=== PATIENT | male | born 1960 ===

== ENCOUNTER 2017-01-26 14:14 | Emergency (ER) | payer OTHER ==
[2017-01-26 14:14] VITALS: BMI 32.6
[2017-01-26 14:24] VITALS: TEMP 97.9; O2SAT 97
[2017-01-26] MEDS ORDERED: Iohexol 240 (50 ml) PO STA (15:05)
[2017-01-26] MEDS ORDERED: Sodium Chloride 0.9% 1,000 ML IV STA (15:05)
--- NOTE | 2017-01-26 15:23 | C.PDOC ---
History Of Present Illness 56-year-old male, presents to the emergency department with complaints of abdominal pain. Patient states he is currently being treated for H. Pylori. Denies nausea/vomiting, diarrhea, fevers, chills, chest pain or shortness of breath. No other complaints at this time. Time Seen by Provider: 01/26/17 14:39 Chief Complaint (Nursing): Abdominal Pain History Per: Patient History/Exam Limitations: no limitations Past Medical History Reviewed: Historical Data, Nursing Documentation, Vital Signs Vital Signs: Last Vital Signs Temp 97.9 F 01/26/17 14:22 Pulse 64 01/26/17 18:23 Resp 20 01/26/17 18:23 BP 105/66 01/26/17 18:23 Pulse Ox 97 01/26/17 18:58 - Medical History PMH: Hypercholesterolemia, Migraine Family History: States: Unknown Family Hx - Social History Hx Alcohol Use: No Hx Substance Use: No - Immunization History Hx Tetanus Toxoid Vaccination: No Hx Influenza Vaccination: No Hx Pneumococcal Vaccination: No Review Of Systems Except As Marked, All Systems Reviewed And Found Negative. Constitutional: Negative for: Fever, Chills Respiratory: Negative for: Cough, Shortness of Breath Gastrointestinal: Positive for: Abdominal Pain. Negative for: Nausea, Vomiting , Diarrhea Genitourinary: Negative for: Dysuria, Frequency Musculoskeletal: Negative for: Back Pain Physical Exam - Physical Exam Appears: Non-toxic, No Acute Distress Skin: Warm, Dry, No Rash Eye(s): bilateral: Normal Inspection, PERRL Nose: Normal Oral Mucosa: Moist Lips: Normal Appearing Neck: Normal ROM Respiratory: No Accessory Muscle Use Extremity: Normal ROM Neurological/Psych: Oriented x3, Normal Speech ED Course And Treatment - Laboratory Results Result Diagrams: 01/26/17 15:22 01/26/17 15:22 O2 Sat by Pulse Oximetry: 97 - CT Scan/US CT ABD/PEL Other Rad Studies (CT/US): Read By Radiologist, Radiology Report Reviewed CT/US Interpretation: Accession No. : [id number]. Patient Name / ID : BROOKLYN GRACE / [id number]. Exam Date : 01/26/2017 17:25:25 ( Approved ). Study Comment : Sex / Age : M / 56Y. Creator : Omar Hirsch MD. Dictator : Omar Hirsch MD. Truss Assembler : Mold Washer : Omar Hirsch MD. Approver2 : Report Date : 01/26/2017 18:05:21. My Comment : . PROCEDURE: CT Abdomen and Pelvis with contrast. HISTORY: Lower abdominal pain. COMPARISON: 12/22/2016 abdominal ultrasound. TECHNIQUE: Contrast dose : 100 cc Omnipaque 350. Radiation dose: Total exam DLP = 77369.9 mGy-cm. This CT exam was performed using one or more of the following dose reduction techniques: Automated exposure control, adjustment of the mA and/or kV according to patient size, and/or use of iterative reconstruction technique. FINDINGS: LOWER THORAX: Dependent subsegmental atelectasis approximately symmetrical bilaterally. LIVER: Hepatic steatosis. No focal masses. No intrahepatic bile duct dilatation or perihepatic ascites. GALLBLADDER AND BILE DUCTS: Unremarkable. PANCREAS: Unremarkable. No gross lesion or ductal dilatation. SPLEEN: Unremarkable. ADRENALS: Unremarkable. No mass. KIDNEYS AND URETERS: Unremarkable. No hydronephrosis. No solid mass. VASCULATURE: Unremarkable. No aortic aneurysm. BOWEL: Constipation without fecal impaction or obstruction. Diverticulosis without an acute inflammatory component or other associated pathologic process. APPENDIX: Normal appendix. PERITONEUM: Unremarkable. No free fluid. No free air. LYMPH NODES: Unremarkable. No enlarged lymph nodes. BLADDER: Unremarkable. REPRODUCTIVE: Unremarkable. BONES: No acute fracture. OTHER FINDINGS: None. IMPRESSION: No acute findings related to/accounting for the clinical presentation Progress Note: CT Abd/Pel. CMP, Lipase. CBC. Morphine, IVF, Zofran. Urine Culture/Urinalysis. Reassess and Disposition. On re-exam patient feels better and is stable to be d/c home with PMD and GI follow up. Disposition - Disposition Disposition: HOME/ ROUTINE Disposition Time: 18:34 Condition: IMPROVED Additional Instructions: Follow up with your PMD within 1-2 days. Return to Ed if feel worse. Prescriptions: Lactulose 30 ml PO DAILY PRN #600 ml PRN Reason: Constipation Instructions: Constipation (ED) - Clinical Impression Clinical Impression: Constipation - Scribe Statement The provider has reviewed the documentation as recorded by the Amyibmaurice Soler All medical record entries made by the Amyibe were at my direction and personally dictated by me. I have reviewed the chart and agree that the record accurately reflects my personal performance of the history, physical exam, medical decision making, and the department course for this patient. I have also personally directed, reviewed, and agree with the discharge instructions and disposition.
[2017-01-26] MEDS ORDERED: Morphine 4 MG/ML VIAL ONE (15:24)
[2017-01-26 15:31] LABS: BASO # 0.1 K/uL (0.0-0.2); BASO % 0.9 % (0.0-2.0); EOS # 0.2 K/uL (0.0-0.7); EOS % 2.2 % (0.0-4.0); HEMATOCRIT 44.4 % (35.0-51.0); LYMPH # 1.9 K/uL (1.0-4.3); LYMPH % 27.2 % (20.0-40.0); MEAN CORPUSCULAR HEMOGLOBIN 30.4 pg (27.0-31.0); MEAN CORPUSCULAR HGB CONC 33.4 g/dL (33.0-37.0); MEAN PLATELET VOLUME 8.6 fL (7.2-11.7); MONO # 0.7 K/uL (0.0-0.8); MONO % 10.4 % (0.0-10.0); RED CELL DISTRIBUTION WIDTH 13.6 % (11.5-14.5)
[2017-01-26 15:34] LABS: RBC URINE < 1 /hpf (0-3); URINE BILIRUBIN NEGATIVE (NEGATIVE); URINE BLOOD NEGATIVE (NEGATIVE); URINE COLOR Yellow (YELLOW); URINE GLUCOSE (UA) NORMAL (Normal); URINE KETONE NEGATIVE (NEGATIVE); URINE LEUKOCYTE ESTERASE NEG Leu/uL (Negative); URINE PROTEIN NEGATIVE (NEGATIVE); URINE UROBILINOGEN NORMAL mg/dL (0.2-1.0); WBC URINE 1 /hpf (0-5)
[2017-01-26 15:38] LABS: CHLORIDE 102 mmol/L (98-107)
[2017-01-26 15:39] LABS: POTASSIUM 4.1 mmol/L (3.6-5.2); SODIUM 138 mmol/L (132-148)
[2017-01-26 15:41] LABS: GFR AFRICAN-AMERICAN > 60
[2017-01-26 15:42] LABS: ALB/GLOB RATIO 1.1 (1.0-2.1); ALKALINE PHOSPHATASE 89 U/L (38-126); ALT/SGPT 31 U/L (21-72); AST/SGOT 41 U/L (17-59); BILIRUBIN,TOTAL 0.5 mg/dL (0.2-1.3); BLOOD UREA NITROGEN 16 mg/dL (9-20); CALCIUM 8.6 mg/dl (8.6-10.4); CARBON DIOXIDE 23 mmol/L (22-30); GLUCOSE,RANDOM 99 mg/dL (75-110); TOTAL PROTEIN 7.1 g/dL (6.3-8.3)
[2017-01-26] MEDS ORDERED: Iohexol 350mg/ml 100 ML ONE (16:42)
--- NOTE | 2017-01-26 18:06 | CT ---
PROCEDURE: CT Abdomen and Pelvis with contrast HISTORY: Lower abdominal pain. COMPARISON: 12/22/2016 abdominal ultrasound. TECHNIQUE: Contrast dose: 100 cc Omnipaque 350 Radiation dose: Total exam DLP = 77157.9 mGy-cm. This CT exam was performed using one or more of the following dose reduction techniques: Automated exposure control, adjustment of the mA and/or kV according to patient size, and/or use of iterative reconstruction technique. FINDINGS: LOWER THORAX: Dependent subsegmental atelectasis approximately symmetrical bilaterally. LIVER: Hepatic steatosis. No focal masses. No intrahepatic bile duct dilatation or perihepatic ascites. GALLBLADDER AND BILE DUCTS: Unremarkable. PANCREAS: Unremarkable. No gross lesion or ductal dilatation. SPLEEN: Unremarkable. ADRENALS: Unremarkable. No mass. KIDNEYS AND URETERS: Unremarkable. No hydronephrosis. No solid mass. VASCULATURE: Unremarkable. No aortic aneurysm. BOWEL: Constipation without fecal impaction or obstruction. Diverticulosis without an acute inflammatory component or other associated pathologic process. APPENDIX: Normal appendix. PERITONEUM: Unremarkable. No free fluid. No free air. LYMPH NODES: Unremarkable. No enlarged lymph nodes. BLADDER: Unremarkable. REPRODUCTIVE: Unremarkable. BONES: No acute fracture. OTHER FINDINGS: None. IMPRESSION: No acute findings related to/accounting for the clinical presentation.
[2017-01-26 18:23] VITALS: BP 105/66; PULSE 64; RESP 20
== END 2017-01-26 18:41 | disposition home or self-care (01) ==
LOC: C.ER 14:14
DX: K59.00 Constipation, unspecified (principal)
CPT/HCPCS: 74177; 80053; 81001; 83690; 85025; 87086; 96374; 96375; 99284; J2270; J2405; J7040; Q9966; Q9967

== ENCOUNTER 2018-10-16 08:16 | Day surgery (SDC) | payer OTHER ==
[2018-10-16 08:45] VITALS: PULSE 71; RESP 18; TEMP 97.1; O2SAT 97
[2018-10-16] MEDS ORDERED: Propofol 10 mg/ml Inj (20 ML) ONE ×2 (09:36→09:37)
--- NOTE | 2018-10-16 09:39 | CP.SDSHP ---
Same Day Surgery H & P - History Proposed Procedure: Colonoscopy Pre-Op Diagnosis: Screening exam - Previous Medical/Surgical History Previous Surgical History: head trauma. Knee surgery - Allergies Allergies: Allergies No Known Allergies Allergy (Verified 10/16/18 08:31) - Current Medications Current Medications: reviewed - Physical Exam General Appearance: wdwn nad Vital Signs: Vital Signs 10/16/18 08:39 Temperature 97.1 F L Pulse Rate 71 Respiratory 18 Rate Blood Pressure 124/67 O2 Sat by Pulse 97 Oximetry Mental Status: Alert & Oriented x3 Neuro: WNL Heart: WNL Lungs: WNL GI: WNL - {Optional Preform as Required} Abdomen: WNL - Impression Impression: screening examination Pt. Evaluated Today:Candidate for Anesthesia & Procedure: Yes - Date & Time Date: 10/16/18 Time: 09:38 Short Stay Discharge - Short Stay Discharge Admitting Diagnosis/Reason for Visit: ENCOUNTER FOR SCREENING FOR MALIGNANT NEOPLASM OF Disposition: HOME/ ROUTINE
[2018-10-16 10:38] VITALS: BP 133/69
== END 2018-10-16 11:01 | disposition home or self-care (01) ==
LOC: C.ENDO 08:16
PROVIDERS: ATTEND Internal Medicine Gastroenterology
DX: Z12.11 Encounter for screening for malignant neoplasm of colon (principal); Z12.12 Encounter for screening for malignant neoplasm of rectum; K63.5 Polyp of colon; K64.8 Other hemorrhoids
CPT/HCPCS: 45385; 88305; J2704